=== PATIENT | female | born 1990 | race African-American/Black ===

== ENCOUNTER 2021-04-04 18:56 | Emergency (ER) | payer OTHER, SELFPAY ==
[2021-04-04 19:09] VITALS: BP 152/98; PULSE 100; RESP 16; TEMP 37.1; O2SAT 98
--- NOTE | 2021-04-04 19:10 | ED.FEMALEGU ---
HPI - Female Genitourinary General Chief complaint: [employer] Stated complaint: Vaginal Problem Time Seen by Provider: 04/04/21 19:11 Source: patient and RN notes reviewed Mode of arrival: ambulatory Limitations: no limitations History of Present Illness HPI Narrative: 31-year-old female presents to the [facility] with complaints of having a tampon stuck. Patient currently on her period. No fevers, abdominal pain or chest pain. No shortness of breath. Related Data Home Medications Medication Instructions Recorded Confirmed No Home Medications 04/04/21 04/04/21 Allergies Allergy/AdvReac Type Severity Reaction Status Date / Time No Known Allergies Allergy Verified 04/04/21 19:19 Review of Systems Review of Systems: All systems reviewed & are unremarkable except as noted in HPI and below Constitutional: Constitutional: Reports no additional constitutional complaints Eyes: Eyes: Reports no additional eye complaints ENT: Reports system reviewed and no additional complaints, except as documented Cardiovascular: Cardiovascular: Reports no additional cardiovascular complaints Respiratory: Respiratory: Reports no additional respiratory complaints Gastrointestinal: Gastrointestinal: Reports no additional gastrointestinal complaints Genitourinary: Genitourinary: Reports no additional female genitourinary complaints Musculoskeletal: Musculoskeletal: Reports no additional musculoskeletal complaints Integumentary/Breasts: Skin/Breast: Reports system reviewed and no additional complaints, except as docu Neurologic: Reports system reviewed and no additional complaints, except as documented Psychiatric: Psychiatric: Reports no additional psychiatric complaints Allergic/Immunologic: Allergic/Immunologic: Reports no additional allergic/immunologic complaints PMFSH Past Medical History Medical History (Updated 04/04/21 @ 19:44 by Kalpana Dutta) No significant medical problems Surgical History Surgical History (Updated 04/04/21 @ 19:44 by Kalpana Dutta) No significant past surgical history Social History Social History (Updated 04/04/21 @ 19:44 by Kalpana Dutta) Living arrangements: with family Comments At the time of my signature, I reviewed and agree with the nursing past medical, surgical, social, and family history. There is no relevant family history pertinent to the patient complaint. Exam Const: General: no acute distress and alert Nutritional Appearance: well nourished and obese Orientation/consciousness: patient oriented x3 HENMT: Head: normal to inspection Eyes: Pupils: Equal, round and reactive pupils present Neck: Neck: normal visual inspection Chest: Chest palpation & inspection: normal inspection of the chest Resp: Effort & Inspection: normal respiratory effort Cardio: Rate: regular rate Rhythm: regular rhythm : General: Yes no CVA tenderness Speculum Exam - Vagina: normal appearance of the vagina, no foreign bodies and vaginal bleeding Speculum Exam - Cervix: normal appearance of the cervix and Cervical os closed Other: Vaginal bleeding from os noted. Patient is on her period. No foreign body noted Skin: General skin exam: normal color Rashes: no rashes Neuro: General: patient oriented x3, moves all extremities, no meningeal signs and no focal motor deficits Speech: normal speech Gait exam (Neuro): Normal gait present Psych: Mental Status: mental status grossly normal Affect: normal affect Attitude: cooperative Thought content: Yes Normal thought content present Judgement: Good judgement present (Psych) Course Course Emergency Course: Discharge instructions reviewed with patient, as well as provided in writing per nursing staff. The instructions also include specific and strict return/GO TO THE ER as well as f/u information. All questions have been answered, and the patient deny any further questions with discharge and discharge plan. Vital Signs Vital sign
== END 2021-04-04 19:22 | disposition home or self-care (01) ==
PROVIDERS: Emergency Provider Nurse Practitioner
DX: N93.9 Abnormal uterine and vaginal bleeding, unspecified (principal)
CPT/HCPCS: 99204; G0463

== ENCOUNTER 2021-06-27 18:41 | Emergency (ER) | payer OTHER, SELFPAY ==
[2021-06-27 18:50] VITALS: BP 141/82; PULSE 93; RESP 16; TEMP 37.2; O2SAT 100
--- NOTE | 2021-06-27 18:55 | ED.URI ---
HPI - URI/Sore Throat General Chief Complaint: Upper Respiratory Infection Stated Complaint: Sinus Infection Time Seen by Provider: 06/27/21 18:56 Source: patient and RN notes reviewed Mode of arrival: ambulatory Limitations: no limitations History of Present Illness HPI Narrative: Winter is a 31-year-old female patient who ambulated into the [facility]. She has been complaining of sinus congestion sinus issues since 06/15/2021. Patient has been treating herself at home with [facility]. Patient complains of green-yellow drainage. Sinus pressure states even her eyes and teeth hurt. MD elicited complaint: nasal congestion and sinus pain Related Data Allergies Allergy/AdvReac Type Severity Reaction Status Date / Time No Known Allergies Allergy Verified 06/27/21 18:58 Review of Systems Review of Systems: CONSTITUTIONAL: Denies body aches, +fever, denies chills, or sweats. EYES: Denies visual changes, redness, or discharge. ENT: Denies rhinorrhea,+ congestion,+ sore throat, denies otalgia. CARDIOVASCULAR: Denies chest pain, palpitations, or edema. RESPIRATORY: + cough denies dyspnea. GASTROINTESTINAL: Denies abdominal pain, nausea, vomiting, or diarrhea. GENITOURINARY: Denies dysuria or hematuria. SKIN: Denies rash, itching, or wounds. MUSCULOSKELETAL: Denies back pain, joint pain, or myalgia. NEUROLOGIC: Denies headache, numbness, tingling, or weakness. PSYCH: Denies depression or anxiety. All systems reviewed & are unremarkable except as noted in HPI and below PMFSH Past Medical History Medical History No significant medical problems Surgical History Surgical History No significant past surgical history Comments At time of signature, I have reviewed and agree with nursing past medical, surgical, social and family history unless otherwise noted. Please see nursing chart for further information. There is no relevant family history pertinent to the presenting complaint Exam Narrative: GENERAL: Well-appearing, well-nourished, and in no acute distress. HEAD: Normocephalic, atraumatic. EYES: EOMI. No redness or drainage. Conjunctivae normal. ENT: Mucous membranes pink and moist. Nares clear. No rhinorrhea. Bilateral tympanic membranes are opaque with moderate bulging, no erythema. Posterior pharynx is erythemic with mild edema and moderate amount of clear postnasal drainage noted Uvula midline. NECK: Normal AROM. Supple. Bilateral anterior cervical lymphadenopathy. CHEST: No respiratory distress. Clear to auscultation. MUSCULOSKELETAL: No bony tenderness. EXTREMITIES: Normal range of motion. No edema. SKIN: Warm, dry, no rash. Capillary refill normal. Normal skin turgor. NEURO: No focal deficits. Alert and oriented x3. Gait steady. PSYCH: Normal affect. No signs of depression or anxiety. Course Vital Signs Vital signs: Vital Signs Temperature 37.2 C 06/27/21 18:50 Pulse Rate 93 06/27/21 18:50 Respiratory Rate 16 06/27/21 18:50 Blood Pressure 141/82 H 06/27/21 18:50 Pulse Oximetry 100 06/27/21 18:50 Temperature 37.2 C 06/27/21 18:50 Pulse Rate 93 06/27/21 18:50 Respiratory Rate 16 06/27/21 18:50 Blood Pressure 141/82 H 06/27/21 18:50 Pulse Oximetry 100 06/27/21 18:50 MDM - URI/Sore Throat MDM Narrative Medical decision making narrative: Patient has almost a week history of sinus pressure and sinus pain. Patient has been treating herself with Sudafed. Patient will now be put on doxycycline and prednisone. Patient to follow-up with her primary care physician in 7 to 10 days for continued symptoms. Patient may continue her Sudafed but needs to increase her fluid intake. Differential Diagnosis Differential diagnosis: Likely upper respiratory infection, otitis media, sinusitis and pharyngitis Critical Care Time Critical Care Time Critical Care Time: No
== END 2021-06-27 19:10 | disposition home or self-care (01) ==
PROVIDERS: Emergency Provider Nurse Practitioner Family
DX: J01.00 Acute maxillary sinusitis, unspecified (principal)
CPT/HCPCS: 99213; G0463